=== PATIENT | female | born 1970 | race Caucasian/White ===

== ENCOUNTER → 2019-12-16 14:49 | Outpatient (CLI) | payer OTHER, SELFPAY ==
--- NOTE | ~2019-12-16 | US_ITS ---
EXAMINATION: US thyroid EXAM DATE: 12/16/2019 15:31 INDICATION: Hyper thyroidism. Swelling on exam. TECHNIQUE: Multiple grayscale and Doppler images of the thyroid were obtained (by a technologist who performed the scan) and subsequently reviewed. Individual nodules and recommendations may be reporte d in accordance with TI-RADS system as designated by the 2017 ACR White Paper TI-RADS committee. The re is no prior study for comparison. FINDINGS: The right thyroid lobe measures 4.9 x 1.5 x 1.7 cm, the left measures 4.1 x 1.9 x 1.4 cm. There is re latively homogeneous thyroid echogenicity. In the midpole of the left thyroid lobe there is a nodule measuring 2.0 x 1.7 x 1.3 cm, solid (2 poin ts), hypoechoic (2 points), wider than tall, smooth margin, without echogenic foci, category TR4 for this nodule. IMPRESSION: Left thyroid lobe nodule large enough to consider ultrasound-guided biopsy. Reviewed, dictated and finalized at location A.
--- NOTE | ~2019-12-16 | XR_ITS ---
EXAMINATION:XR cervical spine 4-5V DATE: 12/16/2019 15:32 INDICATION: Neck pain TECHNIQUE: AP, lateral, lateral swimmers and odontoid views of the cervical spine are provided. COMPARISON: 06/17/2017 FINDINGS: There are 2 mm of chronic retrolisthesis of C5 on C6 and 2 mm of chronic anterolisthesis of C7 on T1. The odontoid is intact. No fracture is identified. There is chronic, severe loss of interv ertebral disc space height at C5-6 and C6-7 and development of moderate to severe loss of disc space height at C4-5. There is no fracture. Small degenerative osteophytes project from the anterior endpla juan of multiple vertebral bodies. 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 Prevertebral soft tissues are normal. IMPRESSION: 1. Severe cervical spondylosis with worsening at C4-5. Reviewed, dictated and finalized at location A.
== END ==
PROVIDERS: PCP Family Medicine; Visit Provider Family Medicine
DX: E03.9 Hypothyroidism, unspecified (principal); E04.9 Nontoxic goiter, unspecified
CPT/HCPCS: 72050; 76536

== ENCOUNTER → 2022-05-17 16:30 | Outpatient (CLI) | payer OTHER, SELFPAY ==
--- NOTE | ~2022-05-17 | MR_ITS ---
MRI of the left knee Clinical history: Chronic pain Technique: Coronal proton density and proton density-weighted images, sagittal proton-density and T2 fat-sat images, and axial proton-density fat-saturated images were acquired. Findings: Anterior and posterior cruciate ligaments are intact. Medial collateral ligament and the la teral collateral ligament complex are intact. Popliteus tendon is intact. There is horizontal tear of the anterior horn of the lateral meniscus, extending into the body segmen t. No medial meniscal tear identified. Articular cartilage is well preserved in the medial and lateral compartments, and along the femoral t rochlea. There is focal low-grade chondromalacia patella at the superior apex region. Extensor mechanism is intact. Minimal joint effusion present. No De Leon's cyst. Impression: Horizontal tear of the anterior horn and body segment of the lateral meniscus. Focal low-grade chondromalacia patella, as detailed above. Minimal joint effusion. Reviewed, dictated and finalized at [facility]. Impression: Horizontal tear of the anterior horn and body segment of the lateral meniscus. Focal low-grade chondromalacia patella, as detailed above. Minimal joint effusion.
== END ==
PROVIDERS: PCP Family Medicine; Visit Provider Orthopaedic Surgery
DX: S83.282A Other tear of lateral meniscus, current injury, left knee, initial encounter (principal); X58.XXXA Exposure to other specified factors, initial encounter
CPT/HCPCS: 73721

== ENCOUNTER 2023-06-19 12:57 | Outpatient (CLI) | payer OTHER, SELFPAY ==
--- NOTE | ~2023-06-19 | CT_ITS ---
Non-contrast Head CT History: Postconcussion syndrome Technique: Axial non-contrast imaging of the brain was performed. Dose reduction technique was used on this scan by utilizing automated exposure control and iterative reconstruction technique. The dose -length product (DLP) was 524.62 mGy-cm. Findings: There is no evidence of intracranial hemorrhage, mass lesion, or acute infarct. Brain par enchyma appears normal. The ventricles and subarachnoid spaces are normal in size. The calvarium ap pears normal. The visualized paranasal sinuses and mastoid air cells are clear. Impression: No significant abnormality seen. Reviewed, dictated and finalized at [facility]. Impression: No significant abnormality seen.
== END 2023-06-19 12:58 ==
PROVIDERS: PCP Family Medicine; Visit Provider Family Medicine
DX: F07.81 Postconcussional syndrome (principal)
CPT/HCPCS: 70450